=== PATIENT | male | born 1990 | race Caucasian/White ===

== ENCOUNTER 2020-12-27 21:54 | Emergency (ER) | payer OTHER ==
[~2020-12-27 21:54] MED LIST: ASPIRIN CHEWABL81 MG PO
== END 2020-12-27 22:52 | disposition left against medical advice (07) ==
LOC: ER1 21:54
DX: Z53.21 Procedure and treatment not carried out due to patient leaving prior to being seen by health care provider (principal)

== ENCOUNTER 2021-05-17 16:36 | Emergency (ER) | payer OTHER ==
[2021-05-17] MEDS ORDERED: HYDROCODON-ACE1 EAC4 PO (18:21)
== END 2021-05-17 18:30 | disposition home or self-care (01) ==
LOC: ER1 16:36
DX: S23.41XA Sprain of ribs, initial encounter (principal); W01.0XXA Fall on same level from slipping, tripping and stumbling without subsequent striking against object, initial encounter; Y92.009 Unspecified place in unspecified non-institutional (private) residence as the place of occurrence of the external cause
CPT/HCPCS: 71250; 72125; 72128; 99283